=== PATIENT | male | born 2000 | race Caucasian/White ===

== ENCOUNTER 2022-06-13 17:49 | Emergency (ER) | payer MEDICAID ==
[~2022-06-13] VITALS: Ht 182.9 cm; Wt 80.0 kg
[2022-06-13 17:54] VITALS: BP 140/92
== END 2022-06-13 18:58 | disposition left against medical advice (07) ==
LOC: ER 18:20
DX: Z53.21 Procedure and treatment not carried out due to patient leaving prior to being seen by health care provider (principal); B20 Human immunodeficiency virus [HIV] disease; Z87.01 Personal history of pneumonia (recurrent)